=== PATIENT | male | born 1975 | race Two or more races ===

== ENCOUNTER 2025-03-20 18:17 | Emergency (ER) | payer SELFPAY ==
[2025-03-20 19:09] VITALS: BP 194/120; BP 204/117; PULSE 92; RESP 20; TEMP 37.1; O2SAT 97
--- NOTE | 2025-03-20 19:23 | PC.NURSE ---
HARDEEP PAYAN CONTACTED AND WILL SEND OFFICER WHEN AVAILABLE.
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
== END 2025-03-20 19:55 | disposition left against medical advice (07) ==
LOC: SERX 19:51
PROVIDERS: Emergency Provider Emergency Medicine
DX: S09.90XA Unspecified injury of head, initial encounter (principal); Y04.0XXA Assault by unarmed brawl or fight, initial encounter; Z53.29 Procedure and treatment not carried out because of patient's decision for other reasons
CPT/HCPCS: 80053; 80320; 85025; 99281; G0480